=== PATIENT | male | born 1985 | race Caucasian/White ===

== ENCOUNTER 2016-12-11 15:09 | Emergency (ER) | payer OTHER ==
[~2016-12-11] VITALS: Ht 185.4 cm; Wt 81.6 kg
[2016-12-11 15:37] VITALS: BP 145/88
--- NOTE | 2016-12-11 15:59 | ED MVC/FALL/TRAUMA COMPLAINT ---
History of Present Illness General Chief Complaint: Fall Stated Complaint: BACK PAIN S/P FALL Source: patient Exam Limitations: no limitations Vital Signs & Intake/Output Vital Signs & Intake/Output Vital Signs Date Time Temp Pulse Resp B/P B/P Pulse O2 O2 Flow FiO2 Mean Ox Delivery Rate 12/11 1537 98.0 91 16 145/88 98 Room Air Allergies Coded Allergies: amoxicillin (HIVES 12/11/16) Reconcile Medications Cyclobenzaprine HCl 10 MG TABLET 1 TAB PO TID SPASMS Ibuprofen 800 MG TABLET 1 TAB PO PRN PAIN (Reported) Ibuprofen 800 MG TABLET 1 TAB PO TID pain Oxycodone HCl/Acetaminophen (Percocet 5-325 MG Tablet) 5 MG-325 MG TABLET 1-2 TAB PO BID pain Pantoprazole Sodium 40 MG TABLET.DR 1 TAB PO DAILY GERD (Reported) Sertraline HCl 25 MG TABLET 1 TAB PO DAILY MENTAL HEALTH (Reported) Triage Note: PT STATES HE FELL ABOUT 1 HOUR AGO AND FELL DOWN [facility]. PT STATES HE TRIPPED OVER THE DOG LEASH AND FELL RIGHT ON HIS BACK. Triage Nurses Notes Reviewed? yes Onset: Abrupt Duration: hour(s):, constant, continues in ED Timing: recent history Severity: moderate, severe Injuries/Fall Location: back Method of Injury: fall Loss of Consciousness: no loss of consciousness No Modifying Factors: none HPI: 31-year-old male comes into emergency room with complaints of back pain. Patient reports that his feet got tangled up in the leash and he fell backwards at the top of the steps and hit his upper back and low back. Sharp pain. Worse with range of motion. Denies any other associated symptoms. Denies any head injury that he can recall. Denies any vomiting. Denies any other associated symptoms. Past History Travel History Traveled to [place] past 21 day No Medical History Any Pertinent Medical History? see below for history Psychiatric: PTSD Surgical History Surgical History: non-contributory Psychosocial History What is your primary language Ch[place] Tobacco Use: Never used ETOH Use: occasional use Illicit Drug Use: marijuana Family History Hx Contributory? No Review of Systems Review of Systems Constitutional: Reports: no symptoms. Eyes: Reports: no symptoms. Ears, Nose, Throat, Mouth: Reports: no symptoms. Respiratory: Reports: no symptoms. Cardiovascular: Reports: no symptoms. Gastrointestinal/Abdominal: Reports: no symptoms. Genitourinary: Reports: no symptoms. Musculoskeletal: Reports: see HPI. Skin: Reports: no symptoms. Neurological/Psychological: Reports: no symptoms. All Other Systems: Reviewed and Negative Physical Exam Physical Exam General Appearance: well developed/nourished, no apparent distress, alert Head: atraumatic, normal appearance Eyes: Bilateral: normal appearance, PERRL, EOMI. Ears, Nose, Throat, Mouth: hearing grossly normal, moist mucous membrane Neck: normal inspection, full range of motion Respiratory: normal breath sounds, no respiratory distress Cardiovascular: regular rate/rhythm Gastrointestinal: soft, non-tender Back: normal inspection, decreased range of motion, paraspinal muscle tenderness , vertebral tenderness going up entire spine, Extremities: normal range of motion Neurologic/Psych: awake, alert, oriented x 3, normal gait, normal mood/affect Skin: intact, normal color Core Measures ACS in differential dx? No Severe Sepsis Present: No Septic Shock Present: No Progress Differential Diagnosis: abd injury, C/T/L spine injury, ext injury, ICH, pelvis injury, pnemothorax, spinal cord injury, vertebral fractures, transverse process fractures, rib fractures, Plan of Care: Orders Procedure Date/time Status XRY-THORACOLUMBAR SPINE 12/11 1558 Active XRY-CERVICAL SPINE TRAUMA 12/11 1558 Active Diagnostic Imaging: Viewed by Me: Radiology Read. Discussed w/RAD: Radiology Read. Radiology Impression: SERVICE DATE: 12/11/16 EXAM TYPE: RAD - XRY- CERVICAL SPINE TRAUMA; XRY-THORACOLUMBAR SPINE EXAMINATION: CERVICAL AND DORSAL SPINE. CLINICAL INFORMATION: Trauma. Fall and pain. COMPARISON: None TECHNIQUE: Cervical spine 3 views. Vessel spine 3 views. FINDINGS: Cervical spine: There is mild straightening of cervical lordosis. The vertebral heights, alignment and disc heights are normal. No visible acute fracture or dislocation seen. Dorsal spine: There is normal thoracic kyphosis. The vertebral heights, alignment and disc heights are normal. There is no visible fracture, dislocation or lytic process. The paravertebral soft tissues are normal. IMPRESSION: Mild straightening of cervical lordosis suggestive of spasm or positional. No fracture seen. There is no visible dorsal spine fracture or dislocation DICTATED BY: GILMAR VERNON,SINDY DATE/TIME DICTATED:12/11/161634 CHLOROBUTADIENE SCRUBBER OPERATOR:CONCHITA DATE/TIME TRANSCRIBED:12/11/161634 Departure Departure Disposition: HOME OR SELF CARE Condition: Stable Clinical Impression Primary Impression: Back strain Referrals: UNKNOWN (PCP/Family) Additional Instructions: Take Percocet, ibuprofen, and Flexeril as prescribed. Follow-up with your primary care doctor. Return if any concerns worsening symptoms. Please go over all results of today's visit with your primary care doctor. Contact your primary care doctor to let them know you were here in the emergency room. There may be nonspecific findings which may not be related to your visit today here in the emergency room but may require further evaluation and chronic monitoring by your primary care doctor. If you had a laceration today the chance of foreign body always remains. You should follow-up with your primary care doctor for recheck in 3-5 days for a wound check. If you had an x-ray done there is a chance that a fracture could have been missed on initial read and you should follow-up with your primary care doctor for repeat x-rays if symptoms persist. If your blood pressure was elevated here in the emergency room please have rechecked by her primary care doctor within the next 48 hours by your primary care doctor. If you were prescribed a narcotic here in the emergency room or any type of controlled substances you're not allowed to drive while taking this medication or operate any type of heavy machinery. Narcotics can make you feel lightheaded dizziness nausea and can cause constipation. You may need to picker machine operator a stool softener. Thank you for choosing [facility] emergency room. Please return to the emergency room immediately if you have any other concerns worsening of symptoms. Departure Forms: Customer Survey General Discharge Information Prescriptions: Current Visit Scripts Oxycodone HCl/Acetaminophen (Percocet 5-325 MG Tablet) 1-2 TAB PO BID #10 TAB Ibuprofen 1 TAB PO TID #30 TAB Cyclobenzaprine HCl 1 TAB PO TID #20 TAB
[2016-12-11] MEDS ORDERED: SERTRALINE HCL25 MG PO (16:43)
[2016-12-11] MEDS ORDERED: IBUPROFEN800 M1 PO ×2 (16:43→16:46)
--- NOTE | 2016-12-11 16:43 | RADIOLOGY REPORT ---
EXAMINATION: CERVICAL AND DORSAL SPINE. CLINICAL INFORMATION: Trauma. Fall and pain. COMPARISON: None TECHNIQUE: Cervical spine 3 views. Vessel spine 3 views. FINDINGS: Cervical spine: There is mild straightening of cervical lordosis. The vertebral heights, alignment and disc heights are normal. No visible acute fracture or dislocation seen. Dorsal spine: There is normal thoracic kyphosis. The vertebral heights, alignment and disc heights are normal. There is no visible fracture, dislocation or lytic process. The paravertebral soft tissues are normal. IMPRESSION: Mild straightening of cervical lordosis suggestive of spasm or positional. No fracture seen. There is no visible dorsal spine fracture or dislocation
[2016-12-11] MEDS ORDERED: PANTOPRAZOLE SO40 M1 PO (16:44)
[2016-12-11] MEDS ORDERED: PERCOCET 5-3251 EACH PO (16:46)
[2016-12-11] MEDS ORDERED: CYCLOBENZAPRINE10 M1 PO (16:46)
== END 2016-12-11 16:56 ==
LOC: ERH 15:09
DX: S29.012A Strain of muscle and tendon of back wall of thorax, initial encounter (principal); W18.09XA Striking against other object with subsequent fall, initial encounter; Y92.9 Unspecified place or not applicable; Y93.9 Activity, unspecified
CPT/HCPCS: 72050; 72080